=== PATIENT | male | born 1985 ===

== ENCOUNTER 2025-06-20 15:31 | Emergency (ER) | payer SELFPAY ==
[~2025-06-20] VITALS: Ht 177.8 cm; Wt 175.0 kg
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
[2025-06-20 16:12] VITALS: BP 166/131; PULSE 113; RESP 20; TEMP 98.2; O2SAT 98
== END 2025-06-20 16:14 ==
LOC: ER 15:32
DX: Z00.00 Encounter for general adult medical examination without abnormal findings (principal); I10 Essential (primary) hypertension
CPT/HCPCS: 99283